=== PATIENT | male | born 1965 | race African-American/Black ===

== ENCOUNTER 2017-03-01 13:04 | Inpatient (IN) | payer BC, MEDICAID, OTHER ==
[~2017-03-01] VITALS: Ht 188 cm; Wt 108.9 kg
[2017-03-01 16:03] LABS: CHLORIDE 103 mEq/L (98-107)
[2017-03-01 16:04] LABS: BASOPHILS % 1.4 % (0.0-2.0); EOSINOPHILS % 4.6 % (0.0-5.0); HEMATOCRIT. 24.5 % (42.0-52.0); HEMOGLOBIN. 7.6 g/dL (14.0-18.0); LYMPHOCYTES % 31.5 % (20.0-50.0); MEAN CORPUSCULAR HEMOGLOBIN 26.2 pg (28.0-32.0); MEAN CORPUSCULAR VOLUME 84.8 fL (80.0-94.0); MEAN PLATELET VOLUME 8.8 fl (7.4-10.4); MONOCYTES % 9.3 % (2.0-8.0); NEUTROPHILS % 53.2 % (40.0-76.0); PLATELET 206 x1000/uL (130-400); RED BLOOD CELL COUNT 2.89 mill/uL (4.7-6.1); RED CELL DISTRIBUTION WIDTH 19.5 % (11.6-14.6)
[2017-03-01 16:07] LABS: CARBON DIOXIDE 26 mEq/L (21-32)
[2017-03-01 16:44] LABS: INR 1.2
[2017-03-01 17:26] LABS: CLARITY URINE CLEAR (CLEAR); COLOR URINE YELLOW (YELLOW); GLUCOSE URINE 2+ (NEGATIVE); KETONES URINE TRACE (NEGATIVE); LEUKOCYTE ESTERASE URINE NEGATIVE (NEGATIVE); NITRITE URINE NEGATIVE (NEGATIVE); OCCULT BLOOD URINE NEGATIVE (NEGATIVE); PH URINE 5.5 (4.5-8.0); PROTEIN URINE TRACE (NEGATIVE)
[2017-03-01] MEDS ORDERED: ACETAMINOPHEN 325MG TABLET PO PRN (17:30)
[2017-03-01] MEDS ORDERED: MAGNESIUM/ALUMINUM HYDROXIDE/SIMETHICONE 30ML UDC PO PRN (17:30)
[2017-03-01] MEDS ORDERED: IPRATROPIUM/ALBUTEROL 0.5-3(2.5)MG/3ML NEB INH PRN (17:30)
[2017-03-01] MEDS ORDERED: ONDANSETRON HCL 4MG/2ML VIAL IV PRN (17:30)
[2017-03-01] MEDS ORDERED: CLONIDINE 0.1MG TABLET PO PRN (17:30)
[2017-03-01] MEDS: SODIUM CHLORIDE 0.9% 1,000 ML IV SCH ×4 (17:49→23:53)
[2017-03-01] MEDS ORDERED: PANTOPRAZOLE 80 MG in SODIUM CHLORIDE 0.9% 100 ML IV SCH (18:00)
[2017-03-01] MEDS: PANTOPRAZOLE 80 MG in SODIUM CHLORIDE 0.9% 100 ML IV SCH ×3 (18:05→19:09)
[2017-03-01 18:44] LABS: HEPATITIS B SURFACE ANTIGEN NEGATIVE
[2017-03-01 19:12] LABS: HEPATITIS B CORE AB IGM NEGATIVE
[2017-03-01 19:13] LABS: HEPATITIS A AB IGM NEGATIVE (NEGATIVE)
[2017-03-01 22:00] VITALS: BP 145/74
[2017-03-01] MEDS ORDERED: DEXTROSE 50% WATER 50ML SYRINGE IV PRN (23:00)
[2017-03-01 23:11] LABS: HEMOGLOBIN 7.8 g/dL (14.0-18.0)
[2017-03-01 23:34] LABS: CREATINE KINASE 129 IU/L (39-308); CREATINE KINASE MB FRACTION 0.6 ng/mL (0.5-3.6); TROPONIN I < 0.02 ng/mL (0.00-0.04)
[2017-03-02] VITALS (13 sets, daily range): BP systolic 130–150; BP diastolic 67–88
[2017-03-02] MEDS ORDERED: FOLI-43 PO (00:04)
[2017-03-02] MEDS ORDERED: LIP40 PO (00:09)
[2017-03-02] MEDS ORDERED: CYAN10009 PO (00:09)
[2017-03-02] MEDS: PANTOPRAZOLE 80 MG in SODIUM CHLORIDE 0.9% 100 ML IV SCH (03:26)
[2017-03-02 04:37] LABS: *AMPHETAMINES SCREEN URINE NEGATIVE (NEGATIVE); *BARBITURATES SCREEN URINE NEGATIVE (NEGATIVE); *COCAINE SCREEN URINE NEGATIVE (NEGATIVE); CANNABINOID URINE SCREEN NEGATIVE (NEGATIVE); METHADONE URINE SCREEN NEGATIVE (NEGATIVE); OPIATES URINE SCREEN NEGATIVE (NEGATIVE); PHENCYCLIDINE URINE SCREEN NEGATIVE (NEGATIVE)
[2017-03-02 05:10] LABS: *BENZODIAZEPINES SCREEN URINE NEGATIVE (NEGATIVE)
[2017-03-02] MEDS: BLOOD SUGAR DIAGNOSTIC STRIP TEST SCH ×4 (06:16→20:50)
[2017-03-02] MEDS: INSULIN LISPRO 100 UNITS/ML SUBCUT SCH ×4 (06:50→21:27)
[2017-03-02 07:56] LABS: BASOPHILS % 0.6 % (0.0-2.0); EOSINOPHILS % 3.1 % (0.0-5.0); HEMATOCRIT. 23.3 % (42.0-52.0); HEMOGLOBIN. 7.2 g/dL (14.0-18.0); LYMPHOCYTES % 26.5 % (20.0-50.0); MEAN CORPUSCULAR VOLUME 84.6 fL (80.0-94.0); MEAN PLATELET VOLUME 9.6 fl (7.4-10.4); MONOCYTES % 7.9 % (2.0-8.0); NEUTROPHILS % 61.9 % (40.0-76.0); PLATELET 191 x1000/uL (130-400); RED BLOOD CELL COUNT 2.76 mill/uL (4.7-6.1); RED CELL DISTRIBUTION WIDTH 19.1 % (11.6-14.6)
[2017-03-02 08:08] LABS: CARBON DIOXIDE 26 mEq/L (21-32); CHLORIDE 101 mEq/L (98-107); CREATINE KINASE 125 IU/L (39-308); CREATINE KINASE MB FRACTION < 0.5 ng/mL (0.5-3.6); HDL CHOLESTEROL 33 mg/dL (40-59); LDL CHOLESTEROL 98 mg/dL (5-100); TROPONIN I < 0.02 ng/mL (0.00-0.04)
[2017-03-02] MEDS ORDERED: CYANOCOBALAMIN 1000MCG TABLET PO SCH (09:00)
[2017-03-02] MEDS ORDERED: FOLIC ACID 1MG TABLET PO SCH (09:00)
[2017-03-02] MEDS ORDERED: SIMETHICONE 40 MG/0.6 ML 30ML ONE ×2 (11:13→12:10)
[2017-03-02] MEDS ORDERED: FENTANYL CITRATE/PF 50MCG/ML 2ML VIAL ONE (11:13)
[2017-03-02] MEDS ORDERED: MIDAZOLAM HCL 5 MG/5 ML VIAL ONE (11:13)
[2017-03-02] MEDS ORDERED: FENTANYL CITRATE/PF 50MCG/ML 2ML VIAL IV ONE (11:18)
[2017-03-02] MEDS ORDERED: SODIUM CHLORIDE 0.9% 10ML VIAL ONE ×2 (12:10→13:29)
[2017-03-02] MEDS ORDERED: MIDAZOLAM HCL 5 MG/5 ML VIAL IV ONE (12:30)
[2017-03-02] MEDS ORDERED: DIATR MEGLU/DIATRIZOATE SOLN 30ML PO NR (12:45)
[2017-03-02] MEDS: PANTOPRAZOLE SODIUM 40 MG/VIAL IV SCH ×2 (13:16→21:26)
[2017-03-02] MEDS: SODIUM CHLORIDE 0.9% 1,000 ML IV SCH (13:19)
[2017-03-02] MEDS ORDERED: IOHEXOL-350 100 ML BOTTLE ONE (13:29)
[2017-03-02 15:37] LABS: HEMATOCRIT 22.5 % (42.0-52.0)
[2017-03-02] MEDS ORDERED: ATORVASTATIN CALCIUM 40MG TABLET PO SCH (17:00)
== END 2017-03-02 23:09 | disposition short-term general hospital (02) | DRG 254 ==
LOC: ER 15:55 → ENRESERV 19:04 → 8WST 19:21 → EDBEDREQ 19:25
PROVIDERS: ADMIT Internal Medicine; ATTEND Internal Medicine
PROC: 30233N1 Transfusion of Nonautologous Red Blood Cells into Peripheral Vein, Percutaneous Approach (ICD-10-PCS; 2017-03-02)
PROC: 0DB68ZX Excision of Stomach, Via Natural or Artificial Opening Endoscopic, Diagnostic (ICD-10-PCS; principal; 2017-03-02 11:00)
DX: K31.7 Polyp of stomach and duodenum (principal); E11.65 Type 2 diabetes mellitus with hyperglycemia; E44.1 Mild protein-calorie malnutrition; K92.2 Gastrointestinal hemorrhage, unspecified; E83.51 Hypocalcemia; I10 Essential (primary) hypertension; E11.9 Type 2 diabetes mellitus without complications; D50.0 Iron deficiency anemia secondary to blood loss (chronic); E87.6 Hypokalemia; D50.9 Iron deficiency anemia, unspecified; K21.9 Gastro-esophageal reflux disease without esophagitis; Z88.6 Allergy status to analgesic agent
CPT/HCPCS: 36415; 74177; 80053; 80061; 80305; 81001; 82270; 82550; 82553; 82962; 83036; 84443; 84484; 85014; 85018; 85025; 85610; 86705; 86709; 86803; 86850; 86900; 86920; 87340; 88305; 88312; 88313; 93970; 96365; 99152; 99285; A4216; C9113; G0482; J1815; J2250; J3010; J7030; J7040; J7050; P9016; Q9963; Q9967

== ENCOUNTER 2017-04-12 03:19 | Inpatient (IN) | payer OTHER ==
[~2017-04-12] VITALS: Ht 185.4 cm; Wt 109.3 kg
[~2017-04-12 03:19] MED LIST: CYAN10009 PO; FOLI-43 PO; LIP40 PO
[2017-04-12] MEDS ORDERED: PANTOPRAZOLE 80 MG in SODIUM CHLORIDE 0.9% 100 ML IV STA (06:36)
[2017-04-12] MEDS ORDERED: PANTOPRAZOLE SODIUM 40 MG/VIAL IV STA (06:36)
[2017-04-12] MEDS ORDERED: PANTOPRAZOLE SODIUM 40 MG/VIAL IV ONE (07:02)
[2017-04-12 07:17] LABS: EOSINOPHILS % 1.5 % (0.0-5.0); HEMATOCRIT. 24.1 % (42.0-52.0); HEMOGLOBIN. 7.4 g/dL (14.0-18.0); LYMPHOCYTES % 16.4 % (20.0-50.0); MEAN CORPUSCULAR VOLUME 81.2 fL (80.0-94.0); MEAN PLATELET VOLUME 9.1 fl (7.4-10.4); MONOCYTES % 10.5 % (2.0-8.0); NEUTROPHILS % 70.6 % (40.0-76.0); PLATELET 161 x1000/uL (130-400); RED BLOOD CELL COUNT 2.97 mill/uL (4.7-6.1); RED CELL DISTRIBUTION WIDTH 19.7 % (11.6-14.6)
[2017-04-12 07:26] LABS: INR 1.2; PARTIAL THROMBOPLASTIN TIME 25.9 sec (23.4-31.0); PROTHROMBIN TIME 12.6 sec (9.4-11.6)
[2017-04-12 07:36] LABS: CARBON DIOXIDE 26 mEq/L (21-32); CHLORIDE 104 mEq/L (98-107); ETHANOL BLOOD < 10 mg/dL
[2017-04-12] MEDS ORDERED: DIPHENHYDRAMINE 50MG/ML VIAL IV PRN (14:00)
[2017-04-12] MEDS ORDERED: HYDROCODONE/ACETAMINOPHEN 5/325MG TABLET PO PRN (14:00)
[2017-04-12] MEDS ORDERED: ACETAMINOPHEN 325MG TABLET PO PRN (14:00)
[2017-04-12] MEDS ORDERED: CLONIDINE 0.1MG TABLET PO PRN (14:00)
[2017-04-12] MEDS ORDERED: IPRATROPIUM/ALBUTEROL 0.5-3(2.5)MG/3ML NEB INH PRN (14:00)
[2017-04-12] MEDS ORDERED: ONDANSETRON HCL 4MG/2ML VIAL IV PRN (14:00)
[2017-04-12 15:00] VITALS: BP 141/78
[2017-04-12 16:07] LABS: VITAMIN B12 SERUM 792 pg/mL (211-911)
[2017-04-12 16:14] LABS: FERRITIN 7 ng/mL (22-322)
[2017-04-12 16:48] LABS: FOLIC ACID (FOLATE) SERUM > 20.00 ng/mL (>5.38)
[2017-04-12 16:57] LABS: AMMONIA 33 uMol/L (<32)
[2017-04-12 17:00] VITALS: BP 141/78
[2017-04-12 17:04] LABS: TROPONIN I 0.03 ng/mL (0.00-0.04)
[2017-04-12] MEDS: SODIUM CHLORIDE 0.9% 1,000 ML IV SCH (17:11)
[2017-04-12 17:38] LABS: TOTAL IRON BINDING CAPACITY 457 ug/dL (250-450)
[2017-04-12 20:00] VITALS: BP 130/69
[2017-04-12] MEDS ORDERED: ENOXAPARIN 30MG/0.3ML SYR SUBCUT SCH (21:00)
[2017-04-12] MEDS ORDERED: FAMOTIDINE 20MG/2ML VIAL IV SCH (21:00)
[2017-04-13] VITALS (8 sets, daily range): BP systolic 123–143; BP diastolic 61–76
[2017-04-13] MEDS: SODIUM CHLORIDE 0.9% 1,000 ML IV SCH ×2 (06:05→17:52)
[2017-04-13 08:25] LABS: BASOPHILS % 1.1 % (0.0-2.0); EOSINOPHILS % 3.4 % (0.0-5.0); HEMATOCRIT. 22.4 % (42.0-52.0); LYMPHOCYTES % 27.9 % (20.0-50.0); MEAN CORPUSCULAR HEMOGLOBIN 24.7 pg (28.0-32.0); MEAN CORPUSCULAR VOLUME 81.4 fL (80.0-94.0); MEAN PLATELET VOLUME 9.9 fl (7.4-10.4); MONOCYTES % 10.1 % (2.0-8.0); NEUTROPHILS % 57.5 % (40.0-76.0); PLATELET 153 x1000/uL (130-400); RED BLOOD CELL COUNT 2.75 mill/uL (4.7-6.1); RED CELL DISTRIBUTION WIDTH 19.8 % (11.6-14.6)
[2017-04-13 08:27] LABS: HEMOGLOBIN. 6.8 g/dL (14.0-18.0)
[2017-04-13 08:29] LABS: CARBON DIOXIDE 26 mEq/L (21-32); CHLORIDE 103 mEq/L (98-107)
[2017-04-13 08:32] LABS: HDL CHOLESTEROL 26 mg/dL (40-59); LDL CHOLESTEROL 78 mg/dL (5-100)
[2017-04-13] MEDS: PANTOPRAZOLE SODIUM 40 MG/VIAL IV SCH (09:00)
[2017-04-13] MEDS ORDERED: ASCORBIC ACID 500MG/5ML 120ML PO SCH (13:00)
[2017-04-13] MEDS: FERROUS SULFATE 300MG/5ML UDC PO SCH ×2 (13:14→17:52)
[2017-04-13] MEDS ORDERED: ASCORBIC ACID 500 MG TABLET PO SCH (16:15)
[2017-04-13 20:43] LABS: BASOPHILS % 0.7 % (0.0-2.0); EOSINOPHILS % 3.3 % (0.0-5.0); HEMATOCRIT. 25.7 % (42.0-52.0); HEMOGLOBIN. 8.1 g/dL (14.0-18.0); LYMPHOCYTES % 22.3 % (20.0-50.0); MEAN CORPUSCULAR HEMOGLOBIN 25.6 pg (28.0-32.0); MEAN CORPUSCULAR VOLUME 81.6 fL (80.0-94.0); MONOCYTES % 9.4 % (2.0-8.0); NEUTROPHILS % 64.3 % (40.0-76.0); PLATELET 159 x1000/uL (130-400); RED BLOOD CELL COUNT 3.15 mill/uL (4.7-6.1); RED CELL DISTRIBUTION WIDTH 18.9 % (11.6-14.6)
[2017-04-13] MEDS: ASCORBIC ACID 500 MG TABLET PO SCH (21:21)
[2017-04-14] VITALS: BP 136/76
[2017-04-14 04:00] VITALS: BP 132/74
[2017-04-14 06:46] LABS: BASOPHILS % 0.9 % (0.0-2.0); EOSINOPHILS % 4.2 % (0.0-5.0); HEMATOCRIT. 25.1 % (42.0-52.0); HEMOGLOBIN. 7.9 g/dL (14.0-18.0); LYMPHOCYTES % 28.5 % (20.0-50.0); MEAN CORPUSCULAR HEMOGLOBIN 25.9 pg (28.0-32.0); MEAN CORPUSCULAR VOLUME 82.2 fL (80.0-94.0); MEAN PLATELET VOLUME 9.5 fl (7.4-10.4); MONOCYTES % 8.4 % (2.0-8.0); PLATELET 164 x1000/uL (130-400); RED BLOOD CELL COUNT 3.06 mill/uL (4.7-6.1); RED CELL DISTRIBUTION WIDTH 19.3 % (11.6-14.6)
[2017-04-14] MEDS: SODIUM CHLORIDE 0.9% 1,000 ML IV SCH (07:16)
[2017-04-14] MEDS: FERROUS SULFATE 300MG/5ML UDC PO SCH ×3 (07:16→17:23)
[2017-04-14 07:32] LABS: CARBON DIOXIDE 25 mEq/L (21-32); CHLORIDE 104 mEq/L (98-107)
[2017-04-14] MEDS: ASCORBIC ACID 500 MG TABLET PO SCH (09:14)
[2017-04-14] MEDS: PANTOPRAZOLE SODIUM 40 MG/VIAL IV SCH (09:14)
[2017-04-14 11:57] VITALS: BP 132/58
[2017-04-14 16:00] VITALS: BP 134/70
[2017-04-14 18:21] VITALS: BP 122/62
== END 2017-04-14 19:50 | disposition home or self-care (01) | DRG 253 ==
LOC: ER 03:20 → 5WST 09:52 → ENRESERV 14:20
PROVIDERS: ADMIT Internal Medicine; ATTEND Internal Medicine
PROC: 30233N1 Transfusion of Nonautologous Red Blood Cells into Peripheral Vein, Percutaneous Approach (ICD-10-PCS; principal; 2017-04-13)
DX: K92.2 Gastrointestinal hemorrhage, unspecified (principal); K74.60 Unspecified cirrhosis of liver; E11.65 Type 2 diabetes mellitus with hyperglycemia; E44.1 Mild protein-calorie malnutrition; I10 Essential (primary) hypertension; K21.9 Gastro-esophageal reflux disease without esophagitis; Z79.899 Other long term (current) drug therapy; Z88.8 Allergy status to other drugs, medicaments and biological substances; Z72.89 Other problems related to lifestyle; D50.9 Iron deficiency anemia, unspecified
CPT/HCPCS: 36415; 71010; 76700; 80053; 80061; 82140; 82270; 82607; 82728; 82746; 83036; 83540; 83550; 83690; 83735; 84484; 85025; 85044; 85610; 85730; 86850; 86900; 86920; 87040; 87086; 93970; 96365; 96366; 96375; 99285; C9113; G0482; J7030; J7050; P9016

== ENCOUNTER 2017-07-24 09:57 | Emergency (ER) | payer OTHER ==
[~2017-07-24] VITALS: Ht 185.4 cm; Wt 103.0 kg
[2017-07-24] MEDS ORDERED: ONDANSETRON 4MG ODT PO STA (12:59)
[2017-07-24 13:20] LABS: BASOPHILS % 0.5 % (0.0-2.0); EOSINOPHILS % 1.4 % (0.0-5.0); HEMATOCRIT. 38.6 % (42.0-52.0); LYMPHOCYTES % 23.3 % (20.0-50.0); MEAN CORPUSCULAR HEMOGLOBIN 32.3 pg (28.0-32.0); MEAN PLATELET VOLUME 9.2 fl (7.4-10.4); MONOCYTES % 9.6 % (2.0-8.0); NEUTROPHILS % 65.2 % (40.0-76.0); PLATELET 124 x1000/uL (130-400); RED BLOOD CELL COUNT 4.02 mill/uL (4.7-6.1); RED CELL DISTRIBUTION WIDTH 12.7 % (11.6-14.6)
[2017-07-24 13:24] LABS: CHLORIDE 99 mEq/L (98-107)
[2017-07-24 13:25] LABS: INR 1.2; PROTHROMBIN TIME 12.3 sec (9.4-11.6)
[2017-07-24 13:34] LABS: CARBON DIOXIDE 29 mEq/L (21-32)
[2017-07-24 14:05] VITALS: BP 145/80
== END 2017-07-24 15:27 | disposition home or self-care (01) ==
LOC: ER 10:02
DX: K92.0 Hematemesis (principal); R10.9 Unspecified abdominal pain; I10 Essential (primary) hypertension; D64.9 Anemia, unspecified; F17.200 Nicotine dependence, unspecified, uncomplicated; K21.0 Gastro-esophageal reflux disease with esophagitis; Z88.6 Allergy status to analgesic agent
CPT/HCPCS: 36415; 71045; 80053; 85025; 85610; 99285; Q0162

== ENCOUNTER 2017-12-16 12:21 | Inpatient (IN) | payer OTHER ==
[~2017-12-16] VITALS: Ht 185.4 cm; Wt 105.7 kg
[2017-12-16 13:04] LABS: BASOPHILS % 0.9 % (0.0-2.0); EOSINOPHILS % 1.2 % (0.0-5.0); HEMATOCRIT. 40.1 % (42.0-52.0); HEMOGLOBIN. 13.3 g/dL (14.0-18.0); LYMPHOCYTES % 18.9 % (20.0-50.0); MEAN CORPUSCULAR VOLUME 102.2 fL (80.0-94.0); MEAN PLATELET VOLUME 9.6 fl (7.4-10.4); MONOCYTES % 6.8 % (2.0-8.0); NEUTROPHILS % 72.2 % (40.0-76.0); PLATELET 168 x1000/uL (130-400); RED BLOOD CELL COUNT 3.92 mill/uL (4.7-6.1); RED CELL DISTRIBUTION WIDTH 13.4 % (11.6-14.6)
[2017-12-16 13:07] LABS: CHLORIDE 105 mEq/L (98-107)
[2017-12-16 13:10] LABS: INR 1.3; PARTIAL THROMBOPLASTIN TIME 27.4 sec (23.4-31.0); PROTHROMBIN TIME 13.1 sec (9.4-11.6)
[2017-12-16] MEDS ORDERED: FUROSEMIDE 20MG/2ML VIAL IVP ONE (13:45)
[2017-12-16] MEDS ORDERED: LEVOFLOXACIN 750MG PREMIX 150 ML IV ONE (13:45)
[2017-12-16] MEDS ORDERED: IPRATROPIUM/ALBUTEROL 0.5-3(2.5)MG/3ML NEB HHN PRN (16:00)
[2017-12-16] MEDS ORDERED: CLONIDINE 0.1MG TABLET PO PRN (16:00)
[2017-12-16 16:54] LABS: CLARITY URINE CLEAR (CLEAR); COLOR URINE YELLOW (YELLOW); KETONES URINE 1+ (NEGATIVE); LEUKOCYTE ESTERASE URINE NEGATIVE (NEGATIVE); NITRITE URINE NEGATIVE (NEGATIVE); OCCULT BLOOD URINE NEGATIVE (NEGATIVE); PROTEIN URINE TRACE (NEGATIVE); UROBILINOGEN URINE 0.2 E.U./dL (0.2-1.0)
[2017-12-16 17:36] LABS: *AMPHETAMINES SCREEN URINE NEGATIVE (NEGATIVE); *BARBITURATES SCREEN URINE NEGATIVE (NEGATIVE); *BENZODIAZEPINES SCREEN URINE NEGATIVE (NEGATIVE); *COCAINE SCREEN URINE NEGATIVE (NEGATIVE); METHADONE URINE SCREEN NEGATIVE (NEGATIVE); OPIATES URINE SCREEN NEGATIVE (NEGATIVE); PHENCYCLIDINE URINE SCREEN NEGATIVE (NEGATIVE)
[2017-12-16 17:37] LABS: CANNABINOID URINE SCREEN NEGATIVE (NEGATIVE)
[2017-12-16 17:40] VITALS: BP 128/76
[2017-12-16] MEDS ORDERED: BENZONATATE 100MG CAPSULE PO PRN (18:00)
[2017-12-16 18:20] VITALS: BP 128/76
[2017-12-16] MEDS ORDERED: PROT40 MT (18:29)
[2017-12-16] MEDS ORDERED: FERR-71 MT (18:29)
[2017-12-16] MEDS ORDERED: RANI300T4 MT (18:29)
[2017-12-16] MEDS ORDERED: LORA10CA MT (18:29)
[2017-12-16] MEDS ORDERED: TRAM100C3 MT (18:29)
[2017-12-16] MEDS ORDERED: MONT5TAB13 MT (18:30)
[2017-12-16] MEDS: FUROSEMIDE 40MG/4ML VIAL IVP SCH (18:52)
[2017-12-16 20:39] VITALS: BP 119/78
[2017-12-16] MEDS ORDERED: TRAMADOL 50MG TABLET PO PRN (21:45)
[2017-12-16] MEDS ORDERED: HYDROCODONE/ACETAMINOPHEN 10/325MG TABLET PO PRN (21:45)
[2017-12-16] MEDS ORDERED: ZOLPIDEM TARTRATE 5MG TABLET PO PRN (21:45)
[2017-12-17] VITALS: BP 122/82
[2017-12-17 04:00] VITALS: BP 124/80
[2017-12-17] MEDS: FUROSEMIDE 40MG/4ML VIAL IVP SCH ×2 (06:33→17:31)
[2017-12-17] MEDS: OMEPRAZOLE 20MG CAPSULE EXTENDED RELEASE PO SCH (06:37)
[2017-12-17 07:22] LABS: BASOPHILS % 0.5 % (0.0-2.0); EOSINOPHILS % 2.5 % (0.0-5.0); HEMATOCRIT. 36.4 % (42.0-52.0); HEMOGLOBIN. 12.3 g/dL (14.0-18.0); MEAN CORPUSCULAR HEMOGLOBIN 34.1 pg (28.0-32.0); MEAN CORPUSCULAR VOLUME 101.3 fL (80.0-94.0); MEAN PLATELET VOLUME 10.1 fl (7.4-10.4); MONOCYTES % 10.5 % (2.0-8.0); NEUTROPHILS % 61.5 % (40.0-76.0); PLATELET 138 x1000/uL (130-400); RED BLOOD CELL COUNT 3.59 mill/uL (4.7-6.1); RED CELL DISTRIBUTION WIDTH 12.8 % (11.6-14.6)
[2017-12-17 07:51] LABS: CHLORIDE 101 mEq/L (98-107)
[2017-12-17 08:07] VITALS: BP 111/79
[2017-12-17] MEDS: SPIRONOLACTONE 100MG TABLET PO SCH (09:37)
[2017-12-17] MEDS: LOSARTAN POTASSIUM 25 MG TABLET PO SCH (09:37)
[2017-12-17] MEDS ORDERED: LEVOFLOXACIN 250MG TABLET PO SCH (11:00)
[2017-12-17 11:41] VITALS: BP 105/73
[2017-12-17 12:11] LABS: HEPATITIS B SURFACE ANTIGEN NEGATIVE
[2017-12-17 12:40] LABS: HEPATITIS B CORE AB IGM NEGATIVE
[2017-12-17 12:41] LABS: HEPATITIS A AB IGM NEGATIVE (NEGATIVE)
[2017-12-17] MEDS ORDERED: LORAZEPAM 2MG/ML CPJ IV PRN (15:30)
[2017-12-17 16:35] VITALS: BP 105/71
[2017-12-17 20:00] VITALS: BP 103/69
[2017-12-18] VITALS: BP 110/70
[2017-12-18 04:00] VITALS: BP 113/72
[2017-12-18] MEDS: FUROSEMIDE 40MG/4ML VIAL IVP SCH ×2 (06:26→17:02)
[2017-12-18] MEDS: OMEPRAZOLE 20MG CAPSULE EXTENDED RELEASE PO SCH (06:27)
[2017-12-18 08:00] VITALS: BP 109/71
[2017-12-18] MEDS: LOSARTAN POTASSIUM 25 MG TABLET PO SCH (09:00)
[2017-12-18] MEDS: SPIRONOLACTONE 100MG TABLET PO SCH (09:03)
[2017-12-18] MEDS ORDERED: ONDANSETRON HCL 4MG/2ML VIAL IV PRN (09:45)
[2017-12-18] MEDS ORDERED: ACETAMINOPHEN 325MG TABLET PO PRN (09:45)
[2017-12-18 11:53] VITALS: BP 98/67
[2017-12-18 16:01] VITALS: BP 108/77
[2017-12-18 20:00] VITALS: BP 120/80
[2017-12-18] MEDS: FAMOTIDINE 20MG TABLET PO SCH (20:38)
[2017-12-18] MEDS: CARVEDILOL 6.25 MG TABLET PO SCH (20:38)
[2017-12-19] VITALS (9 sets, daily range): BP systolic 93–110; BP diastolic 54–80
[2017-12-19] MEDS: FAMOTIDINE 20MG TABLET PO SCH (06:18)
[2017-12-19] MEDS: FUROSEMIDE 40MG/4ML VIAL IVP SCH ×2 (06:18→17:15)
[2017-12-19 07:04] LABS: HEMATOCRIT 38.4 % (42.0-52.0); MEAN CORPUSCULAR VOLUME 100.5 fL (80.0-94.0); PLATELET 161 x1000/uL (130-400); RED BLOOD CELL COUNT 3.82 mill/uL (4.7-6.1); RED CELL DISTRIBUTION WIDTH 12.4 % (11.6-14.6)
[2017-12-19 07:15] LABS: CHLORIDE 95 mEq/L (98-107)
[2017-12-19] MEDS ORDERED: SPIRONOLACTONE 50MG TABLET PO SCH (09:00)
[2017-12-19] MEDS: CARVEDILOL 6.25 MG TABLET PO SCH (09:19)
[2017-12-19] MEDS: LOSARTAN POTASSIUM 25 MG TABLET PO SCH (09:20)
[2017-12-19] MEDS ORDERED: POTASSIUM CHLORIDE 20MEQ TABLET SR PO NR (10:45)
[2017-12-19] MEDS ORDERED: MAGNESIUM 4 G PREMIX 100 ML IV NR (12:00)
== END 2017-12-19 19:30 | disposition home or self-care (01) | DRG 133 ==
LOC: ER 12:21 → 6WST 13:52 → EDBEDREQ 14:02 → ENRESERV 15:22 → CANBEDREQ 17:00
PROVIDERS: ADMIT Internal Medicine; ATTEND Internal Medicine
DX: J96.00 Acute respiratory failure, unspecified whether with hypoxia or hypercapnia (principal); I50.21 Acute systolic (congestive) heart failure; J18.9 Pneumonia, unspecified organism; I42.9 Cardiomyopathy, unspecified; I27.20 Pulmonary hypertension, unspecified; I11.0 Hypertensive heart disease with heart failure; D64.9 Anemia, unspecified; E11.9 Type 2 diabetes mellitus without complications; E78.5 Hyperlipidemia, unspecified; K70.31 Alcoholic cirrhosis of liver with ascites; F10.20 Alcohol dependence, uncomplicated; Y90.9 Presence of alcohol in blood, level not specified; Z88.8 Allergy status to other drugs, medicaments and biological substances; Z79.899 Other long term (current) drug therapy
CPT/HCPCS: 36415; 71045; 74176; 76705; 80048; 80053; 80305; 81003; 83605; 83690; 83735; 83880; 84145; 84484; 85025; 85027; 85610; 85730; 86705; 86709; 86803; 87040; 87340; 93005; 93306; J1940; J1956; J2060; J3475

== ENCOUNTER 2017-12-20 15:57 | Emergency (ER) | payer OTHER ==
[~2017-12-20] VITALS: Ht 185.4 cm; Wt 107.0 kg
[~2017-12-20 15:57] MED LIST changes: +FERR-71 MT; +LORA10CA MT; +MONT5TAB13 MT; +PROT40 MT; +RANI300T4 MT; +TRAM100C3 MT
[2017-12-20 17:15] LABS: BASOPHILS % 0.6 % (0.0-2.0); EOSINOPHILS % 2.9 % (0.0-5.0); HEMOGLOBIN. 12.4 g/dL (14.0-18.0); LYMPHOCYTES % 28.1 % (20.0-50.0); MEAN CORPUSCULAR HEMOGLOBIN 33.9 pg (28.0-32.0); MEAN CORPUSCULAR VOLUME 100.8 fL (80.0-94.0); MEAN PLATELET VOLUME 9.7 fl (7.4-10.4); MONOCYTES % 13.3 % (2.0-8.0); NEUTROPHILS % 55.1 % (40.0-76.0); PLATELET 159 x1000/uL (130-400); RED BLOOD CELL COUNT 3.67 mill/uL (4.7-6.1); RED CELL DISTRIBUTION WIDTH 12.9 % (11.6-14.6)
[2017-12-20 17:21] LABS: CHLORIDE 96 mEq/L (98-107)
[2017-12-20] MEDS ORDERED: LORAZEPAM 1MG TABLET PO ONE (18:45)
[2017-12-20] MEDS ORDERED: FUROSEMIDE 20MG/2ML VIAL IVP ONE (20:45)
[2017-12-20 22:48] LABS: *AMPHETAMINES SCREEN URINE NEGATIVE (NEGATIVE); *BARBITURATES SCREEN URINE NEGATIVE (NEGATIVE); *BENZODIAZEPINES SCREEN URINE NEGATIVE (NEGATIVE); *COCAINE SCREEN URINE NEGATIVE (NEGATIVE); CANNABINOID URINE SCREEN NEGATIVE (NEGATIVE); METHADONE URINE SCREEN NEGATIVE (NEGATIVE); OPIATES URINE SCREEN NEGATIVE (NEGATIVE); PHENCYCLIDINE URINE SCREEN NEGATIVE (NEGATIVE)
[2017-12-21 01:11] VITALS: BP 112/70
== END 2017-12-21 01:11 | disposition home or self-care (01) ==
LOC: ER 15:57
DX: I50.9 Heart failure, unspecified (principal); K21.9 Gastro-esophageal reflux disease without esophagitis; I10 Essential (primary) hypertension; J90 Pleural effusion, not elsewhere classified; I51.7 Cardiomegaly; K76.9 Liver disease, unspecified; Z88.6 Allergy status to analgesic agent
CPT/HCPCS: 36415; 71045; 80053; 80305; 83880; 84484; 85025; 93005; 96374; 99285; G0482; J1940

== ENCOUNTER 2018-06-26 13:54 | Emergency (ER) | payer OTHER ==
[~2018-06-26] VITALS: Ht 190.5 cm; Wt 111.0 kg
[~2018-06-26 13:54] MED LIST changes: +ALD100 PO; +ALOG1TAB4 MT; +ASCO-339 MT; +ATOR40TA70 MT; -FERR-71 MT; +FERR-71 PO; +FURO-151 MT; -LIP40 PO; -LORA10CA MT; +LORA10CA PO; +MONT10TA24 MT; -MONT5TAB13 MT; -PROT40 MT; +PROT40 PO; -RANI300T4 MT
[2018-06-26] MEDS: FAMOTIDINE 20MG/2ML VIAL IV STA (20:44)
[2018-06-26] MEDS: ONDANSETRON HCL 4MG/2ML INJ IV STA (20:44)
[2018-06-26 21:17] LABS: BASOPHILS % 0.3 % (0.0-2.0); EOSINOPHILS % 0.2 % (0.0-5.0); HEMATOCRIT. 38.2 % (42.0-52.0); HEMOGLOBIN. 13.1 g/dL (14.0-18.0); LYMPHOCYTES % 16.3 % (20.0-50.0); MEAN CORPUSCULAR HEMOGLOBIN 34.8 pg (28.0-32.0); MEAN CORPUSCULAR VOLUME 101.6 fL (80.0-94.0); MEAN PLATELET VOLUME 9.5 fl (7.4-10.4); MONOCYTES % 8.3 % (2.0-8.0); NEUTROPHILS % 74.9 % (40.0-76.0); PLATELET 166 x1000/uL (130-400); RED BLOOD CELL COUNT 3.76 mill/uL (4.7-6.1); RED CELL DISTRIBUTION WIDTH 12.1 % (11.6-14.6)
[2018-06-26 21:21] LABS: CHLORIDE 101 mEq/L (98-107)
[2018-06-26 21:23] LABS: INR 1.1; PROTHROMBIN TIME 11.1 sec (9.1-11.1)
[2018-06-26 21:29] LABS: ETHANOL BLOOD < 10 mg/dL
[2018-06-26 22:08] LABS: CLARITY URINE CLEAR (CLEAR); COLOR URINE ORANGE (YELLOW); KETONES URINE 1+ (NEGATIVE); LEUKOCYTE ESTERASE URINE TRACE (NEGATIVE); NITRITE URINE POSITIVE (NEGATIVE); OCCULT BLOOD URINE NEGATIVE (NEGATIVE); PROTEIN URINE 1+ (NEGATIVE); SPECIFIC GRAVITY URINE 1.032 (1.005-1.030); UROBILINOGEN URINE 0.2 E.U./dL (0.2-1.0)
[2018-06-26 22:35] LABS: *AMPHETAMINES SCREEN URINE NEGATIVE (NEGATIVE); *BARBITURATES SCREEN URINE NEGATIVE (NEGATIVE); *BENZODIAZEPINES SCREEN URINE NEGATIVE (NEGATIVE); *COCAINE SCREEN URINE NEGATIVE (NEGATIVE); CANNABINOID URINE SCREEN NEGATIVE (NEGATIVE); METHADONE URINE SCREEN NEGATIVE (NEGATIVE); OPIATES URINE SCREEN NEGATIVE (NEGATIVE); PHENCYCLIDINE URINE SCREEN NEGATIVE (NEGATIVE)
[2018-06-26] MEDS: CEFTRIAXONE 1 G PREMIX 50 ML IV ONE (23:28)
[2018-06-27 00:13] VITALS: BP 137/79
== END 2018-06-27 00:28 | disposition home or self-care (01) ==
LOC: ER 13:54
DX: G89.29 Other chronic pain (principal); R10.9 Unspecified abdominal pain; I11.0 Hypertensive heart disease with heart failure; I42.9 Cardiomyopathy, unspecified; I50.9 Heart failure, unspecified; R18.8 Other ascites; N28.9 Disorder of kidney and ureter, unspecified; R11.10 Vomiting, unspecified; K21.9 Gastro-esophageal reflux disease without esophagitis; Z88.6 Allergy status to analgesic agent; Z79.899 Other long term (current) drug therapy
CPT/HCPCS: 36415; 76705; 80053; 80305; 81003; 83690; 84484; 85025; 85610; 93005; 96365; 96375; 99284; G0482; J0696; J2405; J3490

== ENCOUNTER 2019-07-27 05:33 | Inpatient (IN) | payer OTHER ==
[2019-07-27] VITALS (8 sets, daily range): BP systolic 133–160; BP diastolic 64–92
[~2019-07-27] VITALS: Ht 185.4 cm; Wt 113.4 kg
[~2019-07-27 05:33] MED LIST changes: +CYAN-50 PO; -CYAN10009 PO
[2019-07-27] MEDS ORDERED: NITROGLYCERIN 0.4MG TABLET SL SL PRN (05:45)
[2019-07-27] MEDS ORDERED: NITROGLYCERIN 50MG PREMIX 250 ML IV ONE (05:45)
[2019-07-27] MEDS ORDERED: FUROSEMIDE 40MG/4ML VIAL IV ONE (05:45)
[2019-07-27 05:55] LABS: BASOPHILS % 1.2 % (0.0-2.0); EOSINOPHILS % 2.1 % (0.0-5.0); HEMATOCRIT. 30.6 % (42.0-52.0); LYMPHOCYTES % 31.5 % (20.0-50.0); MEAN CORPUSCULAR HEMOGLOBIN 31.1 pg (28.0-32.0); MEAN CORPUSCULAR VOLUME 95.2 fL (80.0-94.0); MEAN PLATELET VOLUME 9.4 fl (7.4-10.4); MONOCYTES % 7.8 % (2.0-8.0); NEUTROPHILS % 57.4 % (40.0-76.0); PLATELET 195 x1000/uL (130-400); RED BLOOD CELL COUNT 3.21 mill/uL (4.7-6.1); RED CELL DISTRIBUTION WIDTH 16.7 % (11.6-14.6)
[2019-07-27 06:00] LABS: CHLORIDE 108 mEq/L (98-107)
[2019-07-27] MEDS ORDERED: CALCIUM GLUCONATE 100MG/ML 10ML VIAL IV ONE (06:00)
[2019-07-27] MEDS ORDERED: ONDANSETRON HCL 4MG/2ML INJ IV PRN (10:45)
[2019-07-27] MEDS ORDERED: DEXTROSE 50% WATER 50ML SYRINGE IV PRN (10:45)
[2019-07-27] MEDS: ENOXAPARIN 30MG/0.3ML SYR SUBCUT SCH ×2 (11:14→20:22)
[2019-07-27] MEDS: LOSARTAN POTASSIUM 50 MG TABLET PO SCH (11:14)
[2019-07-27] MEDS: BLOOD SUGAR DIAGNOSTIC STRIP TEST SCH ×3 (11:50→20:24)
[2019-07-27] MEDS: INSULIN LISPRO 100 UNITS/ML SUBCUT SCH ×3 (13:01→20:24)
[2019-07-27 13:08] LABS: CLARITY URINE CLEAR (CLEAR); COLOR URINE YELLOW (YELLOW); KETONES URINE NEGATIVE (NEGATIVE); LEUKOCYTE ESTERASE URINE NEGATIVE (NEGATIVE); NITRITE URINE NEGATIVE (NEGATIVE); OCCULT BLOOD URINE NEGATIVE (NEGATIVE); PROTEIN URINE NEGATIVE (NEGATIVE); SPECIFIC GRAVITY URINE 1.009 (1.005-1.030); UROBILINOGEN URINE 0.2 E.U./dL (0.2-1.0)
[2019-07-27 13:38] LABS: *AMPHETAMINES SCREEN URINE NEGATIVE (NEGATIVE); *BARBITURATES SCREEN URINE NEGATIVE (NEGATIVE); *BENZODIAZEPINES SCREEN URINE NEGATIVE (NEGATIVE); *COCAINE SCREEN URINE NEGATIVE (NEGATIVE); CANNABINOID URINE SCREEN NEGATIVE (NEGATIVE); METHADONE URINE SCREEN NEGATIVE (NEGATIVE); OPIATES URINE SCREEN NEGATIVE (NEGATIVE); PHENCYCLIDINE URINE SCREEN NEGATIVE (NEGATIVE)
[2019-07-27] MEDS: FUROSEMIDE 40MG/4ML VIAL IVP SCH (17:41)
[2019-07-27] MEDS: ACETAMINOPHEN 325MG TABLET PO PRN (18:34)
[2019-07-27] MEDS: CARVEDILOL 6.25 MG TABLET PO SCH (20:23)
[2019-07-28] VITALS (12 sets, daily range): BP systolic 104–150; BP diastolic 59–99
[2019-07-28] MEDS: ACETAMINOPHEN 325MG TABLET PO PRN (02:03)
[2019-07-28] MEDS: BLOOD SUGAR DIAGNOSTIC STRIP TEST SCH ×4 (06:41→21:35)
[2019-07-28] MEDS: INSULIN LISPRO 100 UNITS/ML SUBCUT SCH ×4 (06:41→21:52)
[2019-07-28] MEDS ORDERED: PANT40TA4 MT (06:44)
[2019-07-28] MEDS: FUROSEMIDE 40MG/4ML VIAL IVP SCH ×2 (06:46→17:13)
[2019-07-28 07:24] LABS: BASOPHILS % 0.6 % (0.0-2.0); EOSINOPHILS % 1.4 % (0.0-5.0); HEMATOCRIT. 29.5 % (42.0-52.0); HEMOGLOBIN. 9.4 g/dL (14.0-18.0); MEAN CORPUSCULAR HEMOGLOBIN 30.2 pg (28.0-32.0); MEAN CORPUSCULAR VOLUME 94.3 fL (80.0-94.0); MEAN PLATELET VOLUME 9.9 fl (7.4-10.4); MONOCYTES % 10.9 % (2.0-8.0); NEUTROPHILS % 64.1 % (40.0-76.0); PLATELET 181 x1000/uL (130-400); RED BLOOD CELL COUNT 3.13 mill/uL (4.7-6.1); RED CELL DISTRIBUTION WIDTH 16.6 % (11.6-14.6)
[2019-07-28 07:26] LABS: CHLORIDE 103 mEq/L (98-107)
[2019-07-28] MEDS: CARVEDILOL 6.25 MG TABLET PO SCH ×2 (09:15→21:33)
[2019-07-28] MEDS: LOSARTAN POTASSIUM 50 MG TABLET PO SCH (09:15)
[2019-07-28] MEDS: ENOXAPARIN 30MG/0.3ML SYR SUBCUT SCH ×2 (09:15→21:34)
[2019-07-28] MEDS ORDERED: POTASSIUM CHLORIDE 20MEQ TABLET SR PO NR (11:15)
[2019-07-29] VITALS (8 sets, daily range): BP systolic 99–123; BP diastolic 47–66
[2019-07-29 05:35] LABS: BASOPHILS % 0.7 % (0.0-2.0); EOSINOPHILS % 2.3 % (0.0-5.0); HEMATOCRIT. 28.2 % (42.0-52.0); HEMOGLOBIN. 9.1 g/dL (14.0-18.0); LYMPHOCYTES % 26.3 % (20.0-50.0); MEAN CORPUSCULAR HEMOGLOBIN 30.5 pg (28.0-32.0); MEAN CORPUSCULAR VOLUME 94.4 fL (80.0-94.0); MEAN PLATELET VOLUME 10.1 fl (7.4-10.4); MONOCYTES % 11.6 % (2.0-8.0); NEUTROPHILS % 59.1 % (40.0-76.0); PLATELET 180 x1000/uL (130-400); RED BLOOD CELL COUNT 2.98 mill/uL (4.7-6.1); RED CELL DISTRIBUTION WIDTH 16.8 % (11.6-14.6)
[2019-07-29 05:56] LABS: CHLORIDE 102 mEq/L (98-107)
[2019-07-29] MEDS: BLOOD SUGAR DIAGNOSTIC STRIP TEST SCH ×2 (06:16→12:20)
[2019-07-29] MEDS: FUROSEMIDE 40MG/4ML VIAL IVP SCH (06:18)
[2019-07-29] MEDS: INSULIN LISPRO 100 UNITS/ML SUBCUT SCH ×2 (07:20→12:30)
[2019-07-29] MEDS: CARVEDILOL 6.25 MG TABLET PO SCH (08:38)
[2019-07-29] MEDS: LOSARTAN POTASSIUM 50 MG TABLET PO SCH (08:38)
[2019-07-29] MEDS: ENOXAPARIN 30MG/0.3ML SYR SUBCUT SCH (08:38)
== END 2019-07-29 13:30 | disposition home or self-care (01) | DRG 133 ==
LOC: ER 05:33 → 3WST 06:13 → ENRESERV 09:36
PROVIDERS: ADMIT Internal Medicine; ATTEND Internal Medicine
PROC: 5A09357 Assistance with Respiratory Ventilation, Less than 24 Consecutive Hours, Continuous Positive Airway Pressure (ICD-10-PCS; principal; 2019-07-27)
DX: J96.00 Acute respiratory failure, unspecified whether with hypoxia or hypercapnia (principal); I50.23 Acute on chronic systolic (congestive) heart failure; J84.9 Interstitial pulmonary disease, unspecified; E87.2 Acidosis; E44.1 Mild protein-calorie malnutrition; E87.8 Other disorders of electrolyte and fluid balance, not elsewhere classified; I42.9 Cardiomyopathy, unspecified; I11.0 Hypertensive heart disease with heart failure; D64.9 Anemia, unspecified; E11.9 Type 2 diabetes mellitus without complications; E78.00 Pure hypercholesterolemia, unspecified; E78.5 Hyperlipidemia, unspecified; K21.9 Gastro-esophageal reflux disease without esophagitis; K74.60 Unspecified cirrhosis of liver; E66.9 Obesity, unspecified; Z68.33 Body mass index [BMI] 33.0-33.9, adult; Z91.19 Patient's noncompliance with other medical treatment and regimen; Z88.6 Allergy status to analgesic agent; Z79.899 Other long term (current) drug therapy; Z71.89 Other specified counseling
CPT/HCPCS: 36415; 71045; 80048; 80053; 80305; 81003; 82962; 83605; 83880; 84484; 85025; 87804; 93005; 93306; 94640; 94660; 99291; J0610; J1650; J1815; J1940; J3490